=== PATIENT | female | born 1940 | race Caucasian/White ===

== ENCOUNTER 2017-11-19 00:44 | Emergency (ER) | END 2017-11-19 06:09 | disposition home or self-care (01) ==

== ENCOUNTER 2018-05-10 17:20 | Emergency (ER) | END 2018-05-10 21:40 | disposition left against medical advice (07) ==

== ENCOUNTER 2018-12-09 08:28 | Emergency (ER) | payer MEDICAID ==
[~2018-12-09] VITALS: Ht 147.3 cm; Wt 65.5 kg
[~2018-12-09 08:28] MED LIST: ASPI-817 PO; CALC1TAB80 PO; DOCU-144 PO; LOSA100T15 PO; NAPR-688 PO; NIFE60TA36 PO; TRAM50TA2 PO
[2018-12-09 08:31] VITALS: Ht 147.3 cm; Wt 65.5 kg
--- NOTE | 2018-12-09 09:07 | ERD ---
ER Documentation Chief Complaint Chief Complaint left knee pain/injury due to fall HPI Patient is a 78 years old female presenting to the clinic with persistent left knee pain x 2 months ago. Patient admits to falling injury prior to onset of symptoms and has followed up with PCP. Patient's left knee X-Ray was normal, however, patient continued to have persistent pain and swelling of left knee. Patient reports of difficulty walking and was instructed by her PCP to go to the ER for MRI of left knee. Patient admits to taking various pain medication without resolution. Patient is requesting left lower extremity ultrasound as she is afraid of DVT. ROS All systems reviewed and are negative except as per history of present illness. Medications Home Meds Active Scripts Methylprednisolone* (Medrol* DOSE PACK) 4 Mg/Dose-Pack Tab.ds.pk, 4 MG PO . DIRECTED for 5 Days, PACKET Prov:WILDER ORTIZ PA-C 12/09/18 Ibuprofen* (Motrin*) 400 Mg Tab, 400 MG PO Q8, #30 TAB Prov:WILDER ORTIZ PA-C 12/09/18 Tramadol HCl (Tramadol HCl) 50 Mg Tablet, 50 MG PO Q6 PRN for PAIN, #20 TAB Prov:DWIGHT LUZ MD 11/19/17 Tramadol HCl (Tramadol HCl) 50 Mg Tablet, 50 MG PO Q6 PRN for PAIN, #20 TAB Prov:DWIGHT LUZ MD 11/19/17 Docusate Sodium* (Colace*) 100 Mg Capsule, 100 MG PO TID, #30 CAP Prov:ISREAL TOLLIVER MD 06/15/15 Reported Medications Aspirin* (Aspirin* EC) 81 Mg Tablet.dr, 81 MG PO DAILY, TAB 11/19/17 Losartan Potassium* (Losartan Potassium*) 100 Mg Tablet, 100 MG PO DAILY, TAB 11/19/17 Nifedipine* (Adalat CC*) 60 Mg Tablet.sa, 60 MG PO DAILY, #30 TAB.SA 11/19/17 Naproxen* (Naproxen*) 500 Mg Tablet, 250 MG PO BID PRN for PAIN AND OR ELEVATED TEMP, TAB 11/19/17 Calcium Carbonate/Vitamin D3 (Oysco 500+D Tablet) 1 Tab Tablet, 1 TAB PO DAILY 01/26/15 Allergies Allergies: Coded Allergies: No Known Allergy (Unverified , 11/19/17) PMhx/Soc History of Surgery: No Anesthesia Reaction: No Hx Neurological Disorder: Yes (CVA) Hx Respiratory Disorders: No Hx Cardiac Disorders: Yes (HTN,) Hx Psychiatric Problems: No Hx Miscellaneous Medical Probl: No Hx Alcohol Use: No Hx Substance Use: No Hx Tobacco Use: No Physical Exam Vitals Vital Signs Date Temp Pulse Resp B/P (MAP) Pulse Ox O2 O2 Flow FiO2 Time Delivery Rate 12/09/18 98.0 96 20 169/75 94 08:31 (106) Physical Exam Const: No acute distress Head: Atraumatic Eyes: Normal Conjunctiva Resp: Clear to auscultation bilaterally Cardio: Regular rate and rhythm, no murmurs Abd: Soft, non tender, non distended. Normal bowel sounds Skin: No petechiae or rashes Back: No midline or flank tenderness Ext: Left anterior knee tenderness with edema that is warm to touch. No crepitus or gross trauma noted. Neur: Awake and alert Psych: Normal Mood and Affect Result Diagram: 12/09/1815 Results 24 hrs Laboratory Tests Test 12/09/18 09:15 White Blood Count 6.7 10^3/ul Red Blood Count 4.86 10^6/ul Hemoglobin 13.8 g/dl Hematocrit 43.4 % Mean Corpuscular Volume 89.3 fl Mean Corpuscular Hemoglobin 28.4 pg Mean Corpuscular Hemoglobin Concent 31.8 g/dl Red Cell Distribution Width 14.1 % Platelet Count 315 10^3/UL Mean Platelet Volume 10.2 fl Immature Granulocytes % 0.300 % Neutrophils % 54.1 % Lymphocytes % 31.1 % Monocytes % 8.1 % Eosinophils % 5.9 % Basophils % 0.5 % Nucleated Red Blood Cells % 0.0 /100WBC Immature Granulocytes # 0.020 10^3/ul Neutrophils # 3.6 10^3/ul Lymphocytes # 2.1 10^3/ul Monocytes # 0.5 10^3/ul Eosinophils # 0.4 10^3/ul Basophils # 0.0 10^3/ul Nucleated Red Blood Cells # 0.0 10^3/ul Current Medications Medications Dose Sig/Noam Start Time Status Last (Trade) Ordered Route PRN Stop Time Admin Dose Reason Admin 650 mg ONCE ONCE 12/09/18 DC 12/09/18 Acetaminophen PO 09:30 09:10 (Tylenol 12/09/18 09:31 Tab) 125 mg ONCE ONCE 12/09/18 Methylprednis IM 11:30 olone Sodium 12/09/18 11:31 Succinate (Solu-Medrol) Procedures/MDM Patient was seen and evaluated for persistent left knee pain and swelling. CBC is unremarkable. Left knee X-Ray revealed Small joint effusion and soft tissue swelling without evidence of acute fracture. Mild degenerate joint disease with faint chondrocalcinosis. Findings are nonspecific but can be seen with CPPD arthropathy. Left lower extremity venous ultrasound revealed No evidence of deep vein thrombosis and 6.0 x 1.7 x 3.3 cm left popliteal cyst. Patient was given Tylenol and Solumedrol IM in ED with improvement of symptoms. Consultation with Dr. Starkey agreed to management plan. Patient is stable and ready for discharge. Patient was advised to F/U with PCP for outpatient management of Chavez's cyst. Patient will be given Medrol Dosepak and Ibuprofen. Departure Diagnosis: Primary Impression: Knee pain Chronicity: acute Laterality: left Qualified Codes: M25.562 - Pain in left knee Additional Impressions: Osteoarthritis Osteoarthritis location: knee Osteoarthritis type: primary Laterality: left Qualified Codes: M17.12 - Unilateral primary osteoarthritis, left knee Chondrocalcinosis Chavez cyst Laterality: left Qualified Codes: M71.22 - Synovial cyst of popliteal space [Chavez], left knee Condition: Stable Patient Instructions: Chavez's Cyst, Knee Pain, Uncertain Cause, Osteoarthritis Referrals: [facility] Additional Instructions: Paciente aconseja volver a Departamento de urgencias inmediatamente para sntomas nuevos o que empeoran . Paciente aconseja posteriores con el PCP en 2-[place] . Paciente verbaliza la comprehensin y est de acuerdo con el tratamiento y el curso de accin. Si el paciente no tiene ninguna de atencin primaria pueden seguir con [facility] [id number] [place] [address] o [facility] + [address] [address] WILDER ORTIZ PA-C Dec 09, 2018 09:07
[2018-12-09] MEDS ORDERED: ACETAMINOPHEN 325 MG TAB PO ONE (09:30)
[2018-12-09] MEDS ORDERED: MED4DP PO (11:07)
[2018-12-09] MEDS ORDERED: IBUP-1561 PO (11:07)
[2018-12-09] MEDS ORDERED: METHYLPREDNISOLONE 125 MG INJ IM ONE (11:30)
== END 2018-12-09 11:22 | disposition home or self-care (01) ==
LOC: FTE 08:28
DX: M25.562 Pain in left knee (principal); M17.12 Unilateral primary osteoarthritis, left knee; M71.22 Synovial cyst of popliteal space [Baker], left knee; M11.20 Other chondrocalcinosis, unspecified site; I10 Essential (primary) hypertension; Z79.82 Long term (current) use of aspirin; Z86.73 Personal history of transient ischemic attack (TIA), and cerebral infarction without residual deficits
CPT/HCPCS: 73562; 85025; 93971; 96372; J2930; Z7502; Z7610